=== PATIENT | male | born 1965 ===

== ENCOUNTER 2017-01-27 08:00 | Day surgery (SDC) | payer OTHER ==
[~2017-01-27 08:00] MED LIST: ANCEF/STERILE WATER 2 GM/20 ML 2 GM/20 ML SYRINGE IV SCH; HEPARIN SUB-Q NR; ceFAZolin 2 GM in NACL 0.9% 100 ML IV ONE
--- NOTE | 2017-01-27 08:59 | Anesthesia Day of Surgery ---
Anesthesia Day of Surgery - Day of Surgery Patient Examined: Yes Patient H&P Reviewed: Yes Patient is NPO: Yes
--- NOTE | 2017-01-27 08:59 | Anesthesia Consultation ---
Anesthesia Consult and Med Hx Date of service: 01/27/17 - Airway Anesthetic Teeth Evaluation: Poor (many missing and broken back upper and lower molars) ROM Head & Neck: Adequate Mental/Hyoid Distance: Adequate Mallampati Class: Class II Intubation Access Assessment: Probably Good - Pulmonary Exam CTA: Yes - Cardiac Exam Cardiac Exam: RRR - Pre-Operative Health Status ASA Pre-Surgery Classification: ASA2 Proposed Anesthetic Plan: General - Pulmonary Hx Smoking: No Hx Sleep Apnea: No - Cardiovascular System Hx Hypertension: No - Central Nervous System Hx Psychiatric Problems: No - Gastrointestinal Hx Gastroesophageal Reflux Disease: Yes (mild - diet controlled) - Endocrine Hx Insulin Dependent Diabetes: No - Hematic Hx Anemia: No Hx Sickle Cell Disease: No - Other Systems Hx Alcohol Use: No Hx Substance Use: No Hx Cancer: No Hx Obesity: No
[2017-01-27] MEDS ORDERED: VERSED IV NR (09:00)
[2017-01-27] MEDS ORDERED: XYLOCAINE MPF 2% ONE (10:00)
[2017-01-27] MEDS ORDERED: PEPCID IV NR (10:00)
[2017-01-27] MEDS ORDERED: LACTATED RINGERS 1,000 ML IV SCH (10:00)
[2017-01-27] MEDS ORDERED: SUBLIMAZE ONE (10:01)
[2017-01-27] MEDS ORDERED: MARCAINE-EPI 0.25%-1:200,000 INFILTRATI ONE ×3 (10:01→10:12)
[2017-01-27] MEDS ORDERED: DIPRIVAN 10 MG/ML IV ONE (10:03)
[2017-01-27] MEDS ORDERED: NACL 0.9% IR ONE (10:12)
[2017-01-27] MEDS ORDERED: ePHEDrine SULFATE ONE (10:27)
[2017-01-27] MEDS ORDERED: ZOFRAN ONE (11:09)
[2017-01-27] MEDS ORDERED: DECADRON ONE (11:09)
[2017-01-27] MEDS ORDERED: TORADOL ONE (11:13)
[2017-01-27] MEDS ORDERED: NEOSTIGMINE ONE (11:14)
[2017-01-27] MEDS ORDERED: ROBINUL ONE (11:14)
--- NOTE | 2017-01-27 11:24 | Short Stay Summary ---
Short Stay Documentation Date of service: 01/27/17 - Allergies and Medications Current Medications: Allergies No Known Allergies Allergy (Unverified 01/24/17 14:00) Home Medications Medication Instructions Recorded Confirmed Last Taken Type No Known Home Medications [No 01/24/17 01/24/17 Unknown History Reported Home Medications] Active Medications Famotidine (Pepcid) 20 mg IV PREOP NR Stop: 01/27/17 18:00 Last Admin: 01/27/17 09:39 Dose: 20 mg Heparin Sodium (Porcine) (Heparin) 5,000 unit SUB-Q PREOP NR Stop: 01/27/17 23:59 Last Admin: 01/27/17 09:29 Dose: 5,000 unit Cefazolin Sodium (Ancef/Sterile Water 2 Gm/20 Ml) 2 gm in 20 mls @ 80 mls/hr IV PREOP VERÓNICA Stop: 01/27/17 23:59 Lactated Ringer's (Lactated Ringers) 1,000 mls @ 75 mls/hr IV DIRECT VERÓNICA Last Admin: 01/27/17 09:30 Dose: 75 mls/hr Midazolam HCl (Versed) 2 mg IV PREOP NR Stop: 01/27/17 23:59 Last Admin: 01/27/17 09:43 Dose: 2 mg - Brief post op/procedure progress note Date of procedure: 01/27/17 Pre-op diagnosis: Right inguinal hernia Post-op diagnosis: same Procedure: Laparoscopic right inguinal hernia repair with mesh Anesthesia: VICKIE, local Surgeon: DORIS MONTESINOS Estimated blood loss: none Pathology: none Condition: stable - Disposition Condition at discharge: Good Disposition: DISCHARGED TO HOME OR SELFCARE Short Stay Discharge Plan Activity: no restrictions Diet: regular Wound: remove dressing (01/29/17 and then may shower), other (ice pack to the right groin for 1-2 days to help reduce pain and swelling) Follow up with: PRIMARY CARE,MD [Primary Care Provider] - 7 Days DORIS MONTESINOS MD [Staff Physician] - 7 Days Prescriptions: oxyCODONE /ACETAMINOPHEN [Percocet 5/325] 1 - 2 tab PO Q4HR PRN #40 tab PRN Reason: Pain Promethazine [Phenergan TAB] 25 mg PO Q6HR PRN #10 tab PRN Reason: Nausea
[2017-01-27] MEDS ORDERED: DILAUDID ONE (11:35)
[2017-01-27] MEDS: DILAUDID IV PRN ×4 (11:40→12:15)
--- NOTE | 2017-01-27 12:02 | Post Anesthesia Evaluation ---
- Post Anesthesia Evaluation Patient Participated: Yes Airway Patent: Yes Stable Respiratory Function: Yes Nausea/Vomiting: No Temp > 96.8F: Yes Pain Manageable: Yes Adequeate Hydration: Yes Anesthesia Complications: No Block Receding Appropriately: Not Applicable Patient on Ventilator: No
--- NOTE | 2017-01-27 12:39 | Operative Report ---
PREOPERATIVE DIAGNOSIS: Right inguinal hernia. POSTOPERATIVE DIAGNOSIS: Right inguinal hernia. PROCEDURE: Laparoscopic right inguinal hernia repair with mesh. SURGEON: Rik Woody MD ANESTHESIA: General and local. ESTIMATED BLOOD LOSS: Minimal. SPECIMEN: None. COMPLICATIONS: None. INDICATIONS: This is a 51-year-old gentleman who has a symptomatic right inguinal hernia presents now for repair. OPERATIVE COURSE: The patient was brought to the operating room, identified, and placed in the supine position. General anesthesia was achieved. His abdomen was prepped and draped in usual manner. Prior to all incisions, the area was infiltrated with 0.25% Marcaine. A supraumbilical 10 mm incision was made using a Veress needle technique. The abdomen was insufflated to 15 mmHg pressure. A 10 mm trocar was inserted using a 30-degree 10 mm telescope. The other trocars were placed under direct vision, which included right and left lateral 5 mm ports. The abdomen was explored. No hernia on the left side. On the right side, there was a pantaloon type hernia with the major portion being a direct. We proceeded to take down the peritoneal lining with sharp and blunt dissection reducing the urachal fold from the direct component and the hernia sac out of the indirect component. Great care was taken to make sure we did not injure the epigastric vessels, gonadal vessels and vas deferens. Once we had the peritoneal lining completely down, we introduced a 4 inch x 6 inch piece of Parietex single right-sided mesh, tacked it once to Arik's ligament with the ProTacker and twice across the anterior abdominal wall to hold the mesh in place. We then reperitonealized the abdomen with the tacker. Great care was taken to make sure we did not go too far laterally with the tacker ____ nerves. Once we were satisfied that the mesh was in good position with no signs of any other pathology. We then removed the ports under direct vision. No signs of bleeding from the port sites. We evacuated the CO2 and closed all the incisions with a 4-0 Vicryl suture, Steri-Strips, and bandage. He tolerated the procedure well without complications. JOB# [id number] BUD/TRENTON
[2017-01-27 13:24] VITALS: BP 101/55
== END 2017-01-27 13:27 | disposition home or self-care (01) ==
LOC: OR 08:00
PROVIDERS: ATTEND Surgery
DX: K40.90 Unilateral inguinal hernia, without obstruction or gangrene, not specified as recurrent (principal); K21.9 Gastro-esophageal reflux disease without esophagitis; Z98.890 Other specified postprocedural states
CPT/HCPCS: 49650; C1781; J0690; J1100; J1170; J1644; J1885; J2250; J2405; J2704; J2710; J3010; J7120